=== PATIENT | male | born 1975 | race Caucasian/White ===

== ENCOUNTER 2016-04-09 08:32 | Emergency (ER) | payer OTHER ==
[~2016-04-09] VITALS: Ht 180.3 cm; Wt 68.5 kg
--- NOTE | 2016-04-09 08:36 | NUR ---
WALKED IN TO ED DUE TO EPIGASTRIC PAIN RADIATING TO LLQ- ON AND OFF X 1 WEEK. DENIES NAUSEA AND VOMITTING. SKIN IS WARM TO TOUCH AND NON DIAPHORETIC. AFBERILE. VSS
[2016-04-09] MEDS ORDERED: clonazePAM 1 MG TABLET PO ONE (09:00)
[2016-04-09] MEDS ORDERED: ONDANSETRON HCL/PF 4 MG/2 ML VIAL IVP ONE (09:00)
[2016-04-09] MEDS ORDERED: IV NS 0.9% 1,000 ML BAG IV ONE (09:00)
[2016-04-09] MEDS ORDERED: ONDANSETRON HCL/PF 4 MG/2 ML VIAL ONE (09:12)
[2016-04-09] MEDS ORDERED: IV NS 0.9% 1,000 ML ONE (09:12)
[2016-04-09] MEDS ORDERED: IV SET PRIMARY PUMP SET 1 EA INFUS.SET MC ONE (09:12)
[2016-04-09] MEDS ORDERED: clonazePAM 1 MG TABLET ONE (09:12)
--- NOTE | 2016-04-09 09:13 | NUR ---
PT'S DAUGHTER LAURA LARA WITH CONTACT NUMBER- [phone]
--- NOTE | 2016-04-09 09:15 | NUR ---
IV ACCESSED TO RIGHT HAND #[id number]
[2016-04-09 09:23] LABS: BASOPHILS % (AUTO) 0.3 % (0.0-2.0); EOSINOPHILS # (AUTO) 0.2 /CMM (0.0-0.7); EOSINOPHILS % (AUTO) 1.8 % (0.0-6.0); HEMATOCRIT 49 % (39-51); HEMOGLOBIN 16.3 g/dL (13.5-17.5); LYMPHOCYTES % (AUTO) 17.7 % (20.0-44.0); MEAN CORPUSCULAR HEMOGLOBIN 29 PG (26.0-33.0); MEAN CORPUSCULAR HGB CONC 33 g/dl (31.0-36.0); MEAN CORPUSCULAR VOLUME 89 fL (80-96); MONOCYTES # (AUTO) 0.8 /CMM (0.1-1.30); MONOCYTES % (AUTO) 7.1 % (2.0-12.0); NEUTROPHILS # (AUTO) 8.2 /CMM (1.8-8.9); NEUTROPHILS % (AUTO) 73.1 % (43.0-81.0); PLATELET COUNT (AUTO) 206 /CMM (150-450); RDW COEFFICIENT OF VARIATION 13.2 (11.5-15.0); RED BLOOD CELL COUNT(AUTO) 5.55 MIL/uL (4.5-6.0); WHITE BLOOD COUNT (AUTO) 11.2 K/uL (4.3-11.0)
[2016-04-09 09:31] LABS: CREATININE 0.9 mg/dL (0.6-1.3); POTASSIUM 3.8 mmol/L (3.5-5.1)
[2016-04-09 09:37] LABS: ALBUMIN 4.1 g/dL (3.4-5.0); BILIRUBIN,DIRECT 0.1 mg/dL (0.0-0.2); BILIRUBIN,TOTAL 0.6 mg/dL (0.2-1.0)
[2016-04-09 09:57] VITALS: BP 130/80
--- NOTE | 2016-04-09 09:57 | NUR ---
Patient discharged to home in stable condition. Written and verbal after care instructions given. Patient verbalizes understanding of instruction.
== END 2016-04-09 09:59 | disposition home or self-care (01) ==
LOC: ER 08:34
DX: R10.84 Generalized abdominal pain (principal); J45.909 Unspecified asthma, uncomplicated; Z88.0 Allergy status to penicillin
CPT/HCPCS: 36415; 80048-TC; 80076-TC; 83690-TC; 85025-TC; A4606; J2405; J7030; Z7610